=== PATIENT | female | born 1970 | race Caucasian/White ===

== ENCOUNTER → 2016-09-16 | Outpatient (CLI) | payer BC ==
[2016-09-16 11:10] LABS: BASOPHILS % (AUTO) 0.1 % (0-2); HCT - HEMATOCRIT 41.2 % (36-46); HGB - HEMOGLOBIN 14.2 GM/DL (12-16); IMMATURE GRANULOCYTE # (AUTO) 0.03 T/MM3 (0.00-0.03); IMMATURE GRANULOCYTE % (AUTO) 0.2 % (0.0-0.5); LYMPHOCYTES # (AUTO) 2.6 T/MM3 (1-4.8); LYMPHOCYTES % (AUTO) 20.1 % (23-45); MEAN CORPUSCULAR HGB 29.8 UUG (26-34); MEAN CORPUSCULAR HGB CONC(MCHC 34.5 GM/DL (31-37); MEAN CORPUSCULAR VOLUME 86.6 UM3 (80-100); MEAN PLATELET VOLUME 11.2 UM3 (9.4-12.4); MONOCYTES # (AUTO) 1.5 T/MM3 (0-0.8); MONOCYTES % (AUTO) 11.9 % (0-9.0); NEUTROPHILS #(AUTO)-ABSOLUTE 8.7 T/MM3 (1.8-7.7); NEUTROPHILS % (AUTO) 67.7 % (33-66); RED BLOOD COUNT 4.76 M/MM3 (4.00-5.20); WBC - WHITE BLOOD COUNT 12.9 T/MM3 (4.5-11.0)
[2016-09-16 11:15] LABS: INR 2.05 (0.76-1.04); PROTHROMBIN TIME 22.3 SEC (9.31-12.49)
[2016-09-16 11:18] LABS: AMMONIA 14 UMOL/L (9-33)
[2016-09-16 11:19] LABS: ALBUMIN 3.2 G/DL (3.5-5.0); ALBUMIN/GLOBULIN RATIO 0.9 RATIO (1.1-2.2); ALKALINE PHOSPHATASE 308 U/L (38-126); ALT (SGPT) 260 U/L (9-52); ANION GAP 12 MEQ/L (5-15); AST (SGOT) 338 U/L (14-36); BUN/CREATININE RATIO 11 RATIO (6-26); CHLORIDE 97 MEQ/L (98-107); CO2 - CARBON DIOXIDE 28 MEQ/L (22-30); CREATININE 0.7 MG/DL (0.7-1.2); GLOMERULAR FILTRATION RATE 90; GLUCOSE 130 MG/DL (65-110); POTASSIUM 3.8 MEQ/L (3.6-5); SODIUM 137 MEQ/L (134-144); TOTAL PROTEIN 6.8 G/DL (6.3-8.2)
== END ==
LOC: LAB 10:52
PROVIDERS: ATTEND Family Medicine
DX: T50.905A Adverse effect of unspecified drugs, medicaments and biological substances, initial encounter (principal); Y92.9 Unspecified place or not applicable
CPT/HCPCS: 36415; 80053; 82140; 85025; 85610